=== PATIENT | female | born 1995 | race Caucasian/White ===

== ENCOUNTER 2017-09-14 11:26 | Emergency (ER) | payer OTHER ==
[2017-09-14 12:44] VITALS: BP 128/73
[2017-09-14] MEDS ORDERED: CYCL10TA2 PO (13:26)
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
== END 2017-09-14 13:35 | disposition home or self-care (01) ==
LOC: ER 11:26
DX: S80.02XA Contusion of left knee, initial encounter (principal); S80.01XA Contusion of right knee, initial encounter; S50.812A Abrasion of left forearm, initial encounter; V43.52XA Car driver injured in collision with other type car in traffic accident, initial encounter; Y93.I9 Activity, other involving external motion; Y92.410 Unspecified street and highway as the place of occurrence of the external cause; Y99.8 Other external cause status
CPT/HCPCS: 99283